=== PATIENT | female | born 1990 | race Two or more races ===

== ENCOUNTER → 2017-11-23 | Outpatient (CLI) | payer MEDICAID ==
[2017-11-23 12:06] LABS: Basophils # (auto) 0 uL; Basophils % (auto) 0.3 % (0.0-2.0); Eosinophils # (auto) 0.1 uL; Eosinophils % (auto) 0.5 % (0.0-7.0); Hematocrit 40.8 % (36.0-46.0); Hemoglobin 13.4 g/dL (12.2-16.2); Lymphocytes # (auto) 3.4 uL; Lymphocytes % (auto) 23.8 % (10.0-50.0); Mean Corpuscular Hemoglobin 28.4 pg (28.0-32.0); Mean Corpuscular Hgb Conc. 32.7 g/dL (32.0-36.0); Mean Corpuscular Volume 86.7 fL (80.0-100.0); Monocytes # (auto) 0.6 uL; Monocytes % (auto) 4.3 % (0.0-12.0); Neutrophils # (auto) 10.3 uL; Neutrophils % (auto) 71.1 % (37.0-80.0); Platelet Count (auto) 347 10^3/uL (140-450); Red Blood Cells 4.71 10^6/uL (4.0-5.20); Red Cell Distribution Width 13.8 % (11.8-14.3); White Blood Cell 14.4 10^3/uL (4.4-10.8)
[2017-11-23 12:38] LABS: Alcohol, Urine < 3.0 mg/dL (0-5); Amphetamine Screen, Urine NEGATIVE (NEGATIVE); Barbiturate Scree,Urine NEGATIVE (NEGATIVE); Benzodiazephine Screen, Urine NEGATIVE (NEGATIVE); Cannabinoid Screen, Urine NEGATIVE (NEGATIVE); Cocaine Screen, Urine NEGATIVE (NEGATIVE); Opiate Scree,Urine NEGATIVE (NEGATIVE); Phencyclidine Screen, Urine NEGATIVE (NEGATIVE)
== END | disposition home or self-care (01) ==
LOC: LAB 10:33
PROVIDERS: ATTEND Specialist
DX: Z34.00 Encounter for supervision of normal first pregnancy, unspecified trimester (principal); Z20.2 Contact with and (suspected) exposure to infections with a predominantly sexual mode of transmission; Z3A.00 Weeks of gestation of pregnancy not specified
CPT/HCPCS: 36415; 80307; 83036; 85025; 86703; 86762; 86850; 86900; 86901; 87086; 87340; 87591

== ENCOUNTER 2018-06-10 08:11 | Inpatient (IN) | payer MEDICAID ==
[~2018-06-10] VITALS: Ht 165.1 cm; Wt 111.1 kg
[2018-06-10] MEDS ORDERED: LACT. RINGERS/OXYTOCIN 20UNITS 1,000 ML IV SCH (08:35)
[2018-06-10] MEDS: LACTATED RINGER'S 1,000 ML IV SCH ×2 (08:35→16:35)
[2018-06-10] MEDS ORDERED: NALBUPHINE HCL 10 MG/1ml INJECTION IV PRN (08:45)
[2018-06-10] MEDS ORDERED: DERMOPLAST 60ML BOTTLE TOP PRN (08:45)
[2018-06-10] MEDS ORDERED: PHISODERM TOP SOLN 240ML BTL TOP PRN (08:45)
[2018-06-10] MEDS ORDERED: LIDOCAINE 2%HCL (LOCAL ANESTH.) INJ 20ML MDV ID ONE (08:45)
[2018-06-10] MEDS ORDERED: WITCH HAZEL-GLYCERIN PAD TOP PRN (08:45)
[2018-06-10 09:16] LABS: Basophils # (auto) 0.1 uL; Basophils % (auto) 0.4 % (0.0-2.0); Monocytes # (auto) 0.8 uL
[2018-06-10 09:18] LABS: Eosinophils # (auto) 0.2 uL; Eosinophils % (auto) 1.2 % (0.0-7.0); Hematocrit 35.2 % (36.0-46.0); Hemoglobin 11.4 g/dL (12.2-16.2); Lymphocytes % (auto) 23.2 % (10.0-50.0); Mean Corpuscular Hgb Conc. 32.5 g/dL (32.0-36.0); Mean Corpuscular Volume 76.8 fL (80.0-100.0); Monocytes % (auto) 5.9 % (0.0-12.0); Neutrophils # (auto) 9.1 uL; Neutrophils % (auto) 69.3 % (37.0-80.0); Platelet Count (auto) 240 10^3/uL (140-450); Red Blood Cells 4.58 10^6/uL (4.0-5.20); Red Cell Distribution Width 14.6 % (11.8-14.3); White Blood Cell 13.1 10^3/uL (4.4-10.8)
[2018-06-10 09:23] LABS: Urine Bacteria FEW /hpf (None Seen); Urine Blood Negative /uL (Negative); Urine Mucus FEW (None Seen); Urine Specific Gravity 1.025 (1.001-1.035); Urine WBC 5 /hpf (0 - 5)
[2018-06-10 09:29] LABS: INR 0.84 (0.9-1.15); Partial Thromboplastin Time 25.7 sec (23.78-33.04); Prothrombin Time 9.1 sec (9.27-12.13)
[2018-06-10 09:32] LABS: Alcohol, Urine < 3.0 mg/dL (0-5); Amphetamine Screen, Urine NEGATIVE (NEGATIVE); Barbiturate Scree,Urine NEGATIVE (NEGATIVE); Benzodiazephine Screen, Urine NEGATIVE (NEGATIVE); Cannabinoid Screen, Urine NEGATIVE (NEGATIVE); Cocaine Screen, Urine NEGATIVE (NEGATIVE); Opiate Scree,Urine NEGATIVE (NEGATIVE); Phencyclidine Screen, Urine NEGATIVE (NEGATIVE)
[2018-06-10 09:34] LABS: Albumin 2.7 g/dL (3.4-5.0); Calcium 8.2 mg/dL (8.5-10.1); Potassium 3.6 mmol/L (3.5-5.1)
[2018-06-10 09:37] LABS: BUN/Creatinine Ratio 11.7; Bilirubin, Total 0.2 mg/dL (0.2-1.0); Total Protein 6.9 g/dL (6.4-8.2)
[2018-06-10] MEDS ORDERED: PREN27TA7 OR (12:03)
[2018-06-10] MEDS ORDERED: fentaNYL W ROPIVACAINE 150 ML EPI SCH (16:00)
[2018-06-10] MEDS ORDERED: NALOXONE HCL 0.4 MG/ML VIAL IV ONE (16:00)
[2018-06-10] MEDS ORDERED: LIDOCAINE HCL 2 %PF INJ 10ML AMP IJ ONE ×3 (16:00→23:15)
[2018-06-10] MEDS ORDERED: ePHEDrine SULFATE 50 MG/ML AMP IV ONE (16:00)
[2018-06-10] MEDS ORDERED: fentaNYL CITRATE 100 MCG/2 ML VL IV ONE ×2 (16:00→23:15)
[2018-06-10] MEDS ORDERED: PROMETHAZINE HCL 25 MG/ML 1ML IV PRN (22:30)
[2018-06-10] MEDS ORDERED: PROMETHAZINE HCL 25 MG/ML 1ML ONE (22:32)
[2018-06-10] MEDS ORDERED: fentaNYL CITRATE 100 MCG/2 ML VL ONE (23:02)
[2018-06-11] MEDS ORDERED: fentaNYL W ROPIVACAINE 150 ML EPI SCH
[2018-06-11] MEDS ORDERED: LIDOCAINE 2%HCL (LOCAL ANESTH.) INJ 20ML MDV IJ ONE
[2018-06-11] MEDS ORDERED: fentaNYL CITRATE 100 MCG/2 ML VL IV ONE
[2018-06-11] MEDS ORDERED: LIDOCAINE HCL 2 %PF INJ 10ML AMP IJ ONE
[2018-06-11] MEDS ORDERED: NALOXONE HCL 0.4 MG/ML VIAL IV ONE
[2018-06-11] MEDS ORDERED: ePHEDrine SULFATE 50 MG/ML AMP IV ONE
--- NOTE | 2018-06-11 04:00 | NUR ---
Ambulation: Patient OOB with standby assistance by RN. Patient ambulated to bathroom with steady gait. Patient able to void without difficulty 400 ML. [facility] teaching provided with returned demonstration by patient. Clean gown provided and bed linen changed. Patient ambulated back to bed with steady gait and no distress noted.
--- NOTE | 2018-06-11 04:30 | NUR ---
Teaching: Reviewed information in [facility] booklet with patient. Discussed benefits of and risks associated with not . Discussed different positions, proper latch, feeding cues, and baby-led . Provided information of medication side effects related to . All questions and concerns addressed at this time. Patient verbalized understanding of information.
[2018-06-11] MEDS: IBUPROFEN 600 MG TAB PO PRN ×3 (05:48→15:08)
[2018-06-11 06:45] VITALS: BP 137/83
--- NOTE | 2018-06-11 07:05 | NUR ---
Upon walking into room noted a bottle at bedside patient states she wants to formula feed and used formula for helping to latch to breast. Addendum: 06/11/18 at 0815 by Sage Cantor RN wrong patient disregard note.
[2018-06-11 10:30] VITALS: BP 119/75
[2018-06-11 14:51] VITALS: BP 131/73
[2018-06-11 19:00] VITALS: BP 140/84
[2018-06-11] MEDS ORDERED: TETANUS-DIPTH-ACEL PERTUSSIS 0.5ML SYRG IM ONE (19:00)
[2018-06-11 22:50] VITALS: BP 135/76
[2018-06-12 02:56] VITALS: BP 133/71
[2018-06-12] MEDS: IBUPROFEN 600 MG TAB PO PRN ×2 (02:57→07:53)
[2018-06-12 07:15] VITALS: BP 126/75
--- NOTE | 2018-06-12 09:00 | NUR ---
Discharge: Discharge instructions given as ordered. Pt encouraged to follow up with [facility] as instructed. All questions and concerns addressed. Patient verbalized understanding. Medication reconciliation completed and copy given to patient. All required/requested vaccines given and copies of vaccinations given to patient. Patient encouraged to prepare to depart unit.
[2018-06-12 11:06] VITALS: BP 139/75
--- NOTE | 2018-06-12 11:15 | NUR ---
Discharge: Patient taken to vehicle ambulatory per pt request via steady gait with all personal belongings, accompanied by staff and family member. No distress noted at time of departure, no adverse changes in status since initial assessment.
[2018-06-13 23:26] LABS: RPR Non Reactive (Non Reactive)
== END 2018-06-12 11:15 | disposition home or self-care (01) | DRG 560 ==
LOC: LDRP 08:11 → PREOBSVTOIN 08:16
PROVIDERS: ADMIT Specialist; ATTEND Specialist
PROC: 0UQGXZZ Repair Vagina, External Approach (ICD-10-PCS; principal; 2018-06-10)
PROC: 10E0XZZ Delivery of Products of Conception, External Approach (ICD-10-PCS; 2018-06-10)
PROC: 3E0R3BZ Introduction of Anesthetic Agent into Spinal Canal, Percutaneous Approach (ICD-10-PCS; 2018-06-10)
PROC: 00HU33Z Insertion of Infusion Device into Spinal Canal, Percutaneous Approach (ICD-10-PCS; 2018-06-10)
DX: O69.81X0 Labor and delivery complicated by cord around neck, without compression, not applicable or unspecified (principal); Z68.41 Body mass index [BMI] 40.0-44.9, adult; E66.9 Obesity, unspecified; O13.4 Gestational [pregnancy-induced] hypertension without significant proteinuria, complicating childbirth; O99.214 Obesity complicating childbirth; O77.0 Labor and delivery complicated by meconium in amniotic fluid; O71.4 Obstetric high vaginal laceration alone; Z37.0 Single live birth; Z3A.40 40 weeks gestation of pregnancy
CPT/HCPCS: 36415; 51702; 59025; 59409; 62282; 80053; 80307; 81001; 84550; 85025; 85610; 85730; 86592; 86850; 86900; 86901; 90472; 90715; 96365; 96366; 96374; A6257; G0378; J2590; J3010

== ENCOUNTER 2018-09-26 07:00 | Emergency (ER) | payer MEDICAID ==
[~2018-09-26] VITALS: Ht 165.1 cm; Wt 98.9 kg
[~2018-09-26 07:00] MED LIST: PREN27TA7 OR
[2018-09-26 08:25] LABS: Basophils # (auto) 0 uL; Basophils % (auto) 0.3 % (0.0-2.0); Eosinophils # (auto) 0.1 uL; Eosinophils % (auto) 0.5 % (0.0-7.0); Hemoglobin 12.8 g/dL (12.2-16.2); Lymphocytes # (auto) 3.3 uL; Lymphocytes % (auto) 27.7 % (10.0-50.0); Mean Corpuscular Hemoglobin 27.1 pg (28.0-32.0); Mean Corpuscular Volume 82.1 fL (80.0-100.0); Monocytes # (auto) 0.6 uL; Monocytes % (auto) 5.1 % (0.0-12.0); Neutrophils # (auto) 7.8 uL; Neutrophils % (auto) 66.4 % (37.0-80.0); Nucleated Red Blood Cells % 0.1 %; Platelet Count (auto) 332 10^3/uL (140-450); Red Blood Cells 4.75 10^6/uL (4.0-5.20); White Blood Cell 11.8 10^3/uL (4.4-10.8)
[2018-09-26 08:47] LABS: Albumin 3.6 g/dL (3.4-5.0); BUN/Creatinine Ratio 16.1; Calcium 8.7 mg/dL (8.5-10.1); Potassium 3.9 mmol/L (3.5-5.1)
[2018-09-26 08:50] LABS: Bilirubin, Total 0.3 mg/dL (0.2-1.0); Total Protein 7.6 g/dL (6.4-8.2)
[2018-09-26 10:06] LABS: Urine Bacteria FEW /hpf (None Seen); Urine Blood 1+ /uL (Negative); Urine Specific Gravity 1.003 (1.001-1.035); Urine Sperm PRESENT /hpf (None Seen); Urine WBC 4 /hpf (0 - 5)
[2018-09-26 13:12] VITALS: BP 120/82
[2018-09-26] MEDS ORDERED: ACETAMINOPHEN 325 MG TAB PO ONE (13:15)
== END 2018-09-26 13:11 | disposition home or self-care (01) ==
LOC: ER 07:00
DX: O23.41 Unspecified infection of urinary tract in pregnancy, first trimester (principal); O46.91 Antepartum hemorrhage, unspecified, first trimester; Z3A.08 8 weeks gestation of pregnancy; Z79.899 Other long term (current) drug therapy
CPT/HCPCS: 36415; 76801; 80053; 81001; 84702; 85025; 86850; 86900; 86901

== ENCOUNTER 2019-03-29 22:05 | Observation (INO) | payer MEDICAID ==
[2019-03-29] MEDS ORDERED: ACET120S38 PR (22:51)
[2019-03-29 23:57] LABS: Basophils # (auto) 0 uL; Basophils % (auto) 0.2 % (0.0-2.0); Eosinophils # (auto) 0.1 uL; Eosinophils % (auto) 0.8 % (0.0-7.0); Hematocrit 35.9 % (36.0-46.0); Hemoglobin 11.5 g/dL (12.2-16.2); Lymphocytes # (auto) 3.4 uL; Lymphocytes % (auto) 25.4 % (10.0-50.0); Mean Corpuscular Hemoglobin 24.3 pg (28.0-32.0); Mean Corpuscular Hgb Conc. 31.9 g/dL (32.0-36.0); Mean Corpuscular Volume 76.3 fL (80.0-100.0); Monocytes # (auto) 0.9 uL; Monocytes % (auto) 6.3 % (0.0-12.0); Neutrophils % (auto) 67.3 % (37.0-80.0); Nucleated Red Blood Cells % 0.1 %; Platelet Count (auto) 262 10^3/uL (140-450); Red Blood Cells 4.71 10^6/uL (4.0-5.20); White Blood Cell 13.5 10^3/uL (4.4-10.8)
[2019-03-30 00:12] LABS: INR < 0.93 (0.9-1.15); Partial Thromboplastin Time 25.5 sec (23.64-32.05)
[2019-03-30 00:13] LABS: Albumin 2.9 g/dL (3.4-5.0); Calcium 8.6 mg/dL (8.5-10.1); Potassium 3.7 mmol/L (3.5-5.1)
[2019-03-30 00:20] LABS: BUN/Creatinine Ratio 12.1; Bilirubin, Total 0.2 mg/dL (0.2-1.0); Total Protein 7.6 g/dL (6.4-8.2); Uric Acid 4.4 mg/dL (2.6-6.0)
[2019-03-30 00:49] LABS: Alcohol, Urine < 3.0 mg/dL (0-5); Amphetamine Screen, Urine NEGATIVE (NEGATIVE); Barbiturate Scree,Urine NEGATIVE (NEGATIVE); Benzodiazephine Screen, Urine NEGATIVE (NEGATIVE); Cannabinoid Screen, Urine NEGATIVE (NEGATIVE); Opiate Scree,Urine NEGATIVE (NEGATIVE); Phencyclidine Screen, Urine NEGATIVE (NEGATIVE)
[2019-03-30 00:55] LABS: Cocaine Screen, Urine NEGATIVE (NEGATIVE)
[2019-03-30 00:56] LABS: Urine Bacteria FEW /hpf (None Seen); Urine Blood Negative /uL (Negative); Urine Mucus FEW (None Seen); Urine Specific Gravity 1.029 (1.001-1.035); Urine WBC 1 /hpf (0 - 5)
== END 2019-03-30 02:00 | disposition home or self-care (01) | DRG 566 ==
LOC: LDRP 22:05
PROVIDERS: ADMIT Specialist; ATTEND Specialist
DX: O26.893 Other specified pregnancy related conditions, third trimester (principal); M54.2 Cervicalgia; R10.9 Unspecified abdominal pain; R51 Headache; R06.02 Shortness of breath; R68.84 Jaw pain; O21.2 Late vomiting of pregnancy; Z3A.34 34 weeks gestation of pregnancy
CPT/HCPCS: 36415; 59025; 76705; 80053; 80307; 81001; 81002; 84550; 85025; 85362; 85379; 85610; 85730; G0378

== ENCOUNTER 2019-04-12 10:16 | Observation (INO) | payer MEDICAID ==
[~2019-04-12 10:16] MED LIST changes: +ACET120S38 PR
== END 2019-04-12 11:52 | disposition home or self-care (01) | DRG 566 ==
LOC: LDRP 10:16
PROVIDERS: ADMIT Specialist; ATTEND Specialist
DX: O99.89 Other specified diseases and conditions complicating pregnancy, childbirth and the puerperium (principal); N13.30 Unspecified hydronephrosis; Z3A.36 36 weeks gestation of pregnancy
CPT/HCPCS: 59025; 76818; 81002; G0378

== ENCOUNTER 2019-04-18 08:50 | Observation (INO) | payer MEDICAID ==
[~2019-04-18] VITALS: Ht 165.1 cm; Wt 108.9 kg
== END 2019-04-18 12:15 | disposition home or self-care (01) | DRG 566 ==
LOC: LDRP 08:50
PROVIDERS: ADMIT Obstetrics & Gynecology; ATTEND Obstetrics & Gynecology
DX: O99.89 Other specified diseases and conditions complicating pregnancy, childbirth and the puerperium (principal); O42.913 Preterm premature rupture of membranes, unspecified as to length of time between rupture and onset of labor, third trimester; Z3A.37 37 weeks gestation of pregnancy
CPT/HCPCS: 59025; 76818; 81002; 84112; G0378

== ENCOUNTER 2019-04-25 08:21 | Observation (INO) | payer MEDICAID ==
[~2019-04-25 08:21] MED LIST changes: -ACET120S38 PR
== END 2019-04-25 09:05 | disposition home or self-care (01) | DRG 861 ==
LOC: LDRP 08:21
PROVIDERS: ADMIT Obstetrics & Gynecology; ATTEND Obstetrics & Gynecology
DX: Z34.83 Encounter for supervision of other normal pregnancy, third trimester (principal); Z3A.38 38 weeks gestation of pregnancy
CPT/HCPCS: 59025; 76818; 81002; G0378

== ENCOUNTER 2019-05-03 01:06 | Inpatient (IN) | payer MEDICAID ==
[~2019-05-03] VITALS: Ht 165.1 cm; Wt 113.4 kg
[2019-05-03] MEDS ORDERED: LACT. RINGERS/OXYTOCIN 20UNITS 1,000 ML IV SCH ×2 (01:23→05:02)
[2019-05-03] MEDS ORDERED: LACTATED RINGER'S 1,000 ML IV SCH (01:23)
[2019-05-03] MEDS ORDERED: LIDOCAINE 2%HCL (LOCAL ANESTH.) INJ 20ML MDV ONE (01:28)
[2019-05-03] MEDS ORDERED: PENICILLIN G POT 5MIL/D5 50ML 50 ML IV ONE ×2 (01:28→02:00)
[2019-05-03] MEDS ORDERED: LACT. RINGERS/OXYTOCIN 20UNITS 1,000 ML IV ONE (01:29)
[2019-05-03] MEDS ORDERED: DERMOPLAST 60ML BOTTLE TOP PRN (01:30)
[2019-05-03] MEDS ORDERED: METHYLERGONOVINE MALEATE 0.2 MG/ML AMP IM PRN (01:30)
[2019-05-03] MEDS ORDERED: WITCH HAZEL-GLYCERIN PAD TOP PRN (01:30)
[2019-05-03] MEDS ORDERED: CARBOPROST TROMETHAMINE 250 MCG/1ML VIAL IM PRN ×2 (01:30→04:15)
[2019-05-03] MEDS ORDERED: LIDOCAINE 2%HCL (LOCAL ANESTH.) INJ 20ML MDV ID ONE (01:30)
[2019-05-03] MEDS ORDERED: PHISODERM TOP SOLN 240ML BTL TOP PRN (01:30)
[2019-05-03 01:54] LABS: Hemoglobin 10.9 g/dL (12.2-16.2); Mean Corpuscular Hemoglobin 23.2 pg (28.0-32.0); Monocytes # (auto) 0.9 uL; White Blood Cell 14.4 10^3/uL (4.4-10.8)
[2019-05-03 01:55] LABS: Basophils # (auto) 0 uL; Basophils % (auto) 0.2 % (0.0-2.0); Eosinophils # (auto) 0 uL; Eosinophils % (auto) 0.3 % (0.0-7.0); Hematocrit 34.3 % (36.0-46.0); Lymphocytes # (auto) 3.2 uL; Lymphocytes % (auto) 22.2 % (10.0-50.0); Mean Corpuscular Hgb Conc. 31.8 g/dL (32.0-36.0); Mean Corpuscular Volume 72.9 fL (80.0-100.0); Monocytes % (auto) 6.3 % (0.0-12.0); Neutrophils # (auto) 10.3 uL; Nucleated Red Blood Cells % 0.1 %; Platelet Count (auto) 245 10^3/uL (140-450); Red Blood Cells 4.71 10^6/uL (4.0-5.20); Red Cell Distribution Width 16.2 % (11.8-14.3)
[2019-05-03 02:11] LABS: INR 0.92 (0.9-1.15); Partial Thromboplastin Time 25.5 sec (23.64-32.05)
[2019-05-03 02:14] LABS: Albumin 2.8 g/dL (3.4-5.0); BUN/Creatinine Ratio 11.7; Calcium 8.4 mg/dL (8.5-10.1); Potassium 3.7 mmol/L (3.5-5.1)
[2019-05-03 02:16] LABS: Bilirubin, Total 0.4 mg/dL (0.2-1.0); Total Protein 7.3 g/dL (6.4-8.2)
[2019-05-03 02:22] LABS: Urine Bacteria FEW /hpf (None Seen); Urine Blood 1+ /uL (Negative); Urine Mucus FEW (None Seen); Urine Specific Gravity 1.021 (1.001-1.035); Urine WBC 24 /hpf (0 - 5)
[2019-05-03] MEDS ORDERED: fentaNYL W ROPIVACAINE 150 ML EPI SCH (03:00)
[2019-05-03] MEDS ORDERED: ePHEDrine SULFATE 50 MG/ML AMP IV ONE (03:00)
[2019-05-03] MEDS ORDERED: LIDOCAINE HCL 2 %PF INJ 10ML AMP IJ ONE (03:00)
[2019-05-03] MEDS ORDERED: NALOXONE HCL 0.4 MG/ML VIAL IV ONE (03:00)
[2019-05-03] MEDS ORDERED: fentaNYL CITRATE 100 MCG/2 ML VL IV ONE (03:00)
[2019-05-03] MEDS ORDERED: ONDANSETRON HCL 4 MG/2 ML VIAL ONE (03:25)
[2019-05-03] MEDS ORDERED: DIPHENOXYLATE W/ATROPINE 2.5 MG TAB ONE (03:26)
[2019-05-03] MEDS ORDERED: LACT. RINGERS/OXYTOCIN 20UNITS 500 ML IV ONE (04:02)
[2019-05-03] MEDS ORDERED: ACETAMINOPHEN 325 MG TAB PO PRN (04:15)
[2019-05-03] MEDS ORDERED: ONDANSETRON HCL 4 MG/2 ML VIAL IV PRN (04:15)
[2019-05-03] MEDS ORDERED: DIPHENOXYLATE W/ATROPINE 2.5 MG TAB PO PRN (04:15)
[2019-05-03 04:46] LABS: Alcohol, Urine < 3.0 mg/dL (0-5); Amphetamine Screen, Urine NEGATIVE (NEGATIVE); Barbiturate Scree,Urine NEGATIVE (NEGATIVE); Benzodiazephine Screen, Urine NEGATIVE (NEGATIVE); Cannabinoid Screen, Urine NEGATIVE (NEGATIVE); Cocaine Screen, Urine NEGATIVE (NEGATIVE); Opiate Scree,Urine NEGATIVE (NEGATIVE); Phencyclidine Screen, Urine NEGATIVE (NEGATIVE)
--- NOTE | 2019-05-03 05:25 | NUR ---
Ambulation: Patient OOB with standby assistance by RN. Patient ambulated to bathroom with steady gait. Patient able to void without difficulty. [facility] teaching provided with returned demonstration by patient. Clean gown provided and bed linen changed. Patient ambulated back to bed with steady gait and no distress noted.
[2019-05-03] MEDS ORDERED: PENICILLIN G POTASSIUM 2,500,000 UNITS in D5W 5% 50 ML IV SCH (06:00)
[2019-05-03] MEDS: IBUPROFEN 600 MG TAB PO PRN ×3 (06:32→22:52)
[2019-05-03 07:20] VITALS: BP 121/89
[2019-05-03] MEDS ORDERED: ONDANSETRON HCL 4 MG/2 ML VIAL IV ONE (09:45)
[2019-05-03 11:00] VITALS: BP 116/71
[2019-05-03 15:00] VITALS: BP 119/67
--- NOTE | 2019-05-03 16:30 | NUR ---
INFANT LATCHED ON BONDING WELL
[2019-05-03 19:30] VITALS: BP 117/66
[2019-05-03 23:00] VITALS: BP 117/75
[2019-05-04 03:00] VITALS: BP 110/67
[2019-05-04] MEDS ORDERED: INFLUENZA QUAD 2019-2020 0.5ml SYRG IM ONE (05:30)
[2019-05-04] MEDS ORDERED: TETANUS-DIPTH-ACEL PERTUSSIS 0.5ML SYRG IM ONE (05:30)
[2019-05-04] MEDS: IBUPROFEN 600 MG TAB PO PRN (05:46)
[2019-05-04 06:06] LABS: RPR Non Reactive (Non Reactive)
[2019-05-04 07:30] VITALS: BP 118/78
[2019-05-04] MEDS ORDERED: MEASLES, MUMPS & RUBELLA VAC(MMRII) 0.5ML SC ONE (09:45)
--- NOTE | 2019-05-04 09:56 | NUR ---
Discharge: Discharge instructions given as ordered. Pt encouraged to follow up with [facility] as instructed. All questions and concerns addressed. Patient verbalized understanding. Medication reconciliation completed and copy given to patient. All required/requested vaccines given and copies of vaccinations given to patient. Patient encouraged to prepare to depart unit.
[2019-05-04 10:30] VITALS: BP 122/77
--- NOTE | 2019-05-04 10:30 | NUR ---
Discharge: Patient taken to vehicle ambulatory via steady gait, declined wheelchair, with all personal belongings, accompanied by staff and family member. No distress noted at time of departure, no adverse changes in status since initial assessment.
== END 2019-05-04 10:30 | disposition home or self-care (01) | DRG 560 ==
LOC: LDRP 01:06 → OBSVTOIN 01:07 → LDRP 01:24
PROVIDERS: ADMIT Specialist; ATTEND Specialist
PROC: 10E0XZZ Delivery of Products of Conception, External Approach (ICD-10-PCS; principal; 2019-05-03)
PROC: 3E0234Z Introduction of Serum, Toxoid and Vaccine into Muscle, Percutaneous Approach (ICD-10-PCS; 2019-05-04)
PROC: 3E02340 Introduction of Influenza Vaccine into Muscle, Percutaneous Approach (ICD-10-PCS; 2019-05-04)
DX: O62.3 Precipitate labor (principal); O72.1 Other immediate postpartum hemorrhage; O44.40 Low lying placenta NOS or without hemorrhage, unspecified trimester; E28.2 Polycystic ovarian syndrome; Z37.0 Single live birth; Z23 Encounter for immunization
CPT/HCPCS: 36415; 59025; 59409; 80053; 80307; 81001; 84112; 85025; 85610; 85730; 86592; 86850; 86900; 86901; 96361; 96366; 96372; 96374; G0378; J2405; J2540; J2590; J7060